=== PATIENT | female | born 1960 | race Hispanic/Latino ===

== ENCOUNTER 2022-08-28 06:37 | Day surgery (SDC) | payer OTHER ==
[2022-08-26 12:24] LABS: Potassium 4.3 mEq/L (3.5-5.1)
--- NOTE | 2022-08-27 11:37 | EKG ---
Test Date: 2022-08-26 Test Time: 11:49:08 Pin Maker: THEODORA MEASUREMENT RESULTS: Intervals: Rate: 56 [place]: 180 QRSD: 82 QT: 406 QTc: 391 [place]: P: 35 [place]: 180 QRS: -11 T: 33 INTERPRETIVE STATEMENTS: Sinus bradycardia Otherwise normal ECG No previous ECG available for comparison Electronically Signed On 08-27-22 11:36:39 CDT by Santino Cast
--- NOTE | 2022-08-27 11:37 | EKG ---
Test Date: 2022-08-26 Test Time: 13:07:53 Busgirl: THEODORA MEASUREMENT RESULTS: Intervals: Rate: 77 [place]: 178 QRSD: 158 QT: 420 QTc: 475 [place]: P: 82 [place]: 178 QRS: -60 T: 63 INTERPRETIVE STATEMENTS: Normal sinus rhythm Right bundle branch block Left anterior fascicular block Bifascicular block Abnormal ECG Compared to ECG 08/26/2022 11:49:08 Right bundle-branch block now present Left anterior fascicular block now present Bifascicular block now present Sinus bradycardia no longer present Electronically Signed On 08-27-22 11:36:37 CDT by Santino Cast
[2022-08-28] MEDS: Ringers Lactate 1,000 ML IV ONE ×2 (06:55→07:05)
[2022-08-28] MEDS ORDERED: propofoL 200 MG/20 ML VIAL IV ONE (07:36)
[2022-08-28] MEDS ORDERED: LIDOCAINE 1% MPF 30 ML VIAL ONE (07:36)
[2022-08-28 08:57] VITALS: BP 140/80; TEMP 98; O2SAT 99
== END 2022-08-28 08:48 | disposition home or self-care (01) ==
LOC: OR 06:37
PROVIDERS: ATTEND Surgery
PROC: 0DB78ZX Excision of Stomach, Pylorus, Via Natural or Artificial Opening Endoscopic, Diagnostic (ICD-10-PCS; 2022-08-28)
PROC: 0DB68ZX Excision of Stomach, Via Natural or Artificial Opening Endoscopic, Diagnostic (ICD-10-PCS; 2022-08-28)
PROC: 0DB48ZX Excision of Esophagogastric Junction, Via Natural or Artificial Opening Endoscopic, Diagnostic (ICD-10-PCS; 2022-08-28)
PROC: 0DB98ZX Excision of Duodenum, Via Natural or Artificial Opening Endoscopic, Diagnostic (ICD-10-PCS; principal; 2022-08-28 07:30)
DX: K29.30 Chronic superficial gastritis without bleeding (principal); K31.89 Other diseases of stomach and duodenum
CPT/HCPCS: 93005 ×2; 80048; 36415; 88312; 88305; 43239; J2704; J2001; J7120